=== PATIENT | female | born 1995 ===

== ENCOUNTER 2017-12-27 09:03 | Emergency (ER) | payer BC ==
[~2017-12-27] VITALS: Ht 160 cm; Wt 70.3 kg
[2017-12-27] MEDS ORDERED: NS(*) 0.9% 1000 ML BAG 1,000 ML IV ONE (09:25)
--- NOTE | 2017-12-27 09:25 | ER Report ---
History and Physical Time Seen By MD: 09:20 Hx. of Stated Complaint: ABD SINCE LAST NIGHT. LOWER RIGHT QUAD, MOVING AROUND TO BACKSIDE HPI/ROS CHIEF COMPLAINT: Abdominal pain HISTORY OF PRESENT ILLNESS: This is a 22 year old female. She is having lower right abdominal pain. Started last night and worsened. Lower right with some pain going to right lower back. Worsens with movement and pressure. Having some nausea. No dysuria or changes in bowels. No fevers or chills. Last period was about 1 month ago. No rashes. No chest pain. No shortness of breath. Allergies: Coded Allergies: No Known Drug Allergies (Unverified , 12/27/17) Home Meds Active Scripts Ondansetron (ZOFRAN ODT) 4 Mg Tab.rapdis, 4 MG PO Q6H Y for NAUSEA/VOMITING, # 20 TAB.YAMILE 0 Refills Prov:TINO VALDEZ MD 12/27/17 Ketorolac Tromethamine (KETOROLAC TROMETHAMINE) 10 Mg Tab, 10 MG PO Q6H Y for PAIN, #12 TAB 0 Refills Prov:TINO VALDEZ MD 12/27/17 Hydrocodone Bit/Acetaminophen (HYDROCODON-ACETAMINOPHEN 5-325) 1 Each Tablet, 1 EACH PO Q4H Y for PAIN, #12 TAB 0 Refills Prov:TINO VALDEZ MD 12/27/17 Tamsulosin Hcl (FLOMAX) 0.4 Mg Cap.er.24h, 0.4 MG PO QDAY, #14 CAP 0 Refills Prov:TINO VALDEZ MD 12/27/17 Reviewed Nurses Notes: Yes Hx Substance Use Disorder: No Hx Alcohol Use: No Constitutional Vital Sign - Last 24 Hours 12/27/17 12/27/17 12/27/17 12/27/17 09:03 09:11 09:12 09:18 Temp 98.8 Pulse ??? 66 77 Resp 14 B/P (MAP) 139/89 (106) Pulse Ox 94 O2 Delivery Room Air 12/27/17 12/27/17 12/27/17 12/27/17 09:33 10:03 10:18 10:27 Pulse 65 62 91 B/P (MAP) 114/91 (99) Pulse Ox 95 95 97 12/27/17 12/27/17 12/27/17 12/27/17 10:30 10:33 10:38 10:53 Pulse 68 73 ??? B/P (MAP) 130/101 (111) Pulse Ox 95 96 12/27/17 12/27/17 12/27/17 12/27/17 11:03 11:23 11:30 11:38 Pulse 72 63 B/P (MAP) 122/82 (95) 118/82 (94) Pulse Ox 90 96 12/27/17 12/27/17 12/27/17 12/27/17 11:53 12:00 12:08 12:23 Pulse 70 70 63 B/P (MAP) 123/79 (94) Pulse Ox 95 97 94 12/27/17 12:29 Pulse 76 B/P (MAP) 115/77 (90) Pulse Ox 96 O2 Delivery Room Air Intake and Output 12/27/17 12/27/17 12/28/17 15:00 23:00 07:00 Intake Total 1000 ml Balance 1000 ml Physical Exam General Appearance: The patient is alert. No acute distress. ENT: moist mucous membranes. Respiratory: Lungs are clear to auscultation. Cardiovascular: Regular rate and rhythm. No murmurs, gallops or rubs. Normal capillary refill. Gastrointestinal: Abdomen is tender to palpation in the right lower abdomen. Soft. Nondistended. Rebound and guarding are present. Hypoactive bowel sounds. No costovertebral angle tenderness with percussion. Neurological: Alert and oriented x3. No focal neurologic deficits Skin: Warm and dry. No rashes. Musculoskeletal: No pain with palpation of the low back. DIFFERENTIAL DIAGNOSIS: After history and physical exam, differential diagnosis was considered for abdominal pain including but not limited to appendicitis, cholecystitis, gastritis and urinary tract infection. Medical Decision Making Data Points Result Diagram: 12/27/17 0945 12/27/17 0945 Laboratory Hematology Test 12/27/17 09:08 12/27/17 09:45 Urine Color Yellow Urine Clarity Cloudy Urine pH 6.0 pH (4.8-9.5) Urine Specific [place] 1.016 Urine Protein 30 mg/dL (NEGATIVE) Urine Glucose (UA) Negative mg/dL (NEGATIVE) Urine Ketones Negative mg/dL (NEGATIVE) Urine Blood Large (NEGATIVE) Urine Nitrite Negative (NEGATIVE) Urine Bilirubin Negative (NEGATIVE) Urine Urobilinogen Negative mg/dL (0.2-1.9) Urine Leukocyte Esterase Large (NEGATIVE) Urine RBC 139 /HPF (0-2/HPF) Urine WBC 54 /HPF (0-5/HPF) Urine Squamous Epithelial Cells Many /LPF (</=FEW) Urine Renal Epithelial Cells Many /LPF (NONE-FEW) Urine Bacteria Many /HPF (NONE-FEW) Urine Mucus Few /HPF (NONE-FEW) Red Blood Count 5.00 M/uL (4.17-5.56) Mean Corpuscular Volume 84.8 fL (80.0-96.0) Mean Corpuscular Hemoglobin 29.4 pg (26.0-33.0) Mean Corpuscular Hemoglobin Concent 34.7 g/dL (32.0-36.0) Red Cell Distribution Width 12.2 % (11.5-14.5) Mean Platelet Volume 8.5 fL (7.2-11.1) Neutrophils (%) (Auto) 52.0 % (39.4-72.5) Lymphocytes (%) (Auto) 37.5 % (17.6-49.6) Monocytes (%) (Auto) 8.2 % (4.1-12.4) Eosinophils (%) (Auto) 1.4 % (0.4-6.7) Basophils (%) (Auto) 0.9 % (0.3-1.4) Nucleated RBC Relative Count (auto) 0.1 /100WBC Neutrophils # (Auto) 3.0 K/uL (2.0-7.4) Lymphocytes # (Auto) 2.2 K/uL (1.3-3.6) Monocytes # (Auto) 0.5 K/uL (0.3-1.0) Eosinophils # (Auto) 0.1 K/uL (0.0-0.5) Basophils # (Auto) 0.1 K/uL (0.0-0.1) Nucleated RBC Absolute Count (auto) 0.01 K/uL Sodium Level 138 mmol/L (137-145) Potassium Level 4.0 mmol/L (3.5-5.0) Chloride Level 106 mmol/L (98-107) Carbon Dioxide Level 20 mmol/L (22-31) Blood Urea Nitrogen 8 mg/dl (7-18) Creatinine 0.80 mg/dl (0.52-1.04) Glomerular Filtration Rate Calc > 60.0 Random Glucose 88 mg/dl (75-110) Lactate 1.5 mmol/L (0.7-2.1) Calcium Level 9.5 mg/dl (8.4-10.2) Total Bilirubin 0.5 mg/dl (0.2-1.3) Aspartate Amino Transf (AST/SGOT) 21 U/L (0-35) Alanine Aminotransferase (ALT/SGPT) 25 U/L (0-56) Alkaline Phosphatase 51 U/L (0-126) C-Reactive Protein 0.6 mg/dl (<1.0) Total Protein 7.5 gm/dl (6.3-8.2) Albumin 4.2 g/dl (3.5-5.0) Amylase Level 78 U/L (0-110) Lipase 41 U/L (23-300) Human Chorionic Gonadotropin, Qual Negative (NEGATIVE) Chemistry Test 12/27/17 09:08 12/27/17 09:45 Urine Color Yellow Urine Clarity Cloudy Urine pH 6.0 pH (4.8-9.5) Urine Specific [place] 1.016 Urine Protein 30 mg/dL (NEGATIVE) Urine Glucose (UA) Negative mg/dL (NEGATIVE) Urine Ketones Negative mg/dL (NEGATIVE) Urine Blood Large (NEGATIVE) Urine Nitrite Negative (NEGATIVE) Urine Bilirubin Negative (NEGATIVE) Urine Urobilinogen Negative mg/dL (0.2-1.9) Urine Leukocyte Esterase Large (NEGATIVE) Urine RBC 139 /HPF (0-2/HPF) Urine WBC 54 /HPF (0-5/HPF) Urine Squamous Epithelial Cells Many /LPF (</=FEW) Urine Renal Epithelial Cells Many /LPF (NONE-FEW) Urine Bacteria Many /HPF (NONE-FEW) Urine Mucus Few /HPF (NONE-FEW) White Blood Count 5.8 k/uL (4.5-11.0) Red Blood Count 5.00 M/uL (4.17-5.56) Hemoglobin 14.7 g/dL (12.0-16.0) Hematocrit 42.4 % (34.0-47.0) Mean Corpuscular Volume 84.8 fL (80.0-96.0) Mean Corpuscular Hemoglobin 29.4 pg (26.0-33.0) Mean Corpuscular Hemoglobin Concent 34.7 g/dL (32.0-36.0) Red Cell Distribution Width 12.2 % (11.5-14.5) Platelet Count 250 K/uL (150-450) Mean Platelet Volume 8.5 fL (7.2-11.1) Neutrophils (%) (Auto) 52.0 % (39.4-72.5) Lymphocytes (%) (Auto) 37.5 % (17.6-49.6) Monocytes (%) (Auto) 8.2 % (4.1-12.4) Eosinophils (%) (Auto) 1.4 % (0.4-6.7) Basophils (%) (Auto) 0.9 % (0.3-1.4) Nucleated RBC Relative Count (auto) 0.1 /100WBC Neutrophils # (Auto) 3.0 K/uL (2.0-7.4) Lymphocytes # (Auto) 2.2 K/uL (1.3-3.6) Monocytes # (Auto) 0.5 K/uL (0.3-1.0) Eosinophils # (Auto) 0.1 K/uL (0.0-0.5) Basophils # (Auto) 0.1 K/uL (0.0-0.1) Nucleated RBC Absolute Count (auto) 0.01 K/uL Glomerular Filtration Rate Calc > 60.0 Lactate 1.5 mmol/L (0.7-2.1) Calcium Level 9.5 mg/dl (8.4-10.2) Total Bilirubin 0.5 mg/dl (0.2-1.3) Aspartate Amino Transf (AST/SGOT) 21 U/L (0-35) Alanine Aminotransferase (ALT/SGPT) 25 U/L (0-56) Alkaline Phosphatase 51 U/L (0-126) C-Reactive Protein 0.6 mg/dl (<1.0) Total Protein 7.5 gm/dl (6.3-8.2) Albumin 4.2 g/dl (3.5-5.0) Amylase Level 78 U/L (0-110) Lipase 41 U/L (23-300) Human Chorionic Gonadotropin, Qual Negative (NEGATIVE) Urinalysis Test 12/27/17 09:08 Urine Color Yellow Urine Clarity Cloudy Urine pH 6.0 pH (4.8-9.5) Urine Specific [place] 1.016 Urine Protein 30 mg/dL (NEGATIVE) Urine Glucose (UA) Negative mg/dL (NEGATIVE) Urine Ketones Negative mg/dL (NEGATIVE) Urine Blood Large (NEGATIVE) Urine Nitrite Negative (NEGATIVE) Urine Bilirubin Negative (NEGATIVE) Urine Urobilinogen Negative mg/dL (0.2-1.9) Urine Leukocyte Esterase Large (NEGATIVE) Urine RBC 139 /HPF (0-2/HPF) Urine WBC 54 /HPF (0-5/HPF) Urine Squamous Epithelial Cells Many /LPF (</=FEW) Urine Renal Epithelial Cells Many /LPF (NONE-FEW) Urine Bacteria Many /HPF (NONE-FEW) Urine Mucus Few /HPF (NONE-FEW) EKG/Imaging Imaging EXAMINATION: CT abdomen with IV contrast CT pelvis with IV contrast HISTORY: Right lower quadrant pain. TECHNIQUE: Spiral scan was through the abdomen and pelvis during injection of nonionic iodinated intravenous contrast. Sagittal and coronal reformatted images are also submitted. One of the following dose optimization techniques was utilized in the performance of this exam: Automated exposure control; adjustment of the mA and/ or kV according to the patient's size; or use of an iterative reconstruction technique. Specific details can be referenced in the facility's radiology CT exam operational policy. CONTRAST: 75 mL of IV Isovue-370 COMPARISON: None. FINDINGS: Lower chest: Negative. Liver / biliary: Negative. Pancreas: Negative. Spleen: Negative. Adrenal glands: Negative. Kidneys: Multiple bilateral nonobstructing kidney stones measuring up to 6 mm on the left and 3 mm on the right. 3 mm obstructing stone in the right ureteropelvic junction with mild to moderate right hydronephrosis. Pelvic structures: Negative. Bowel: Normal appendix. Otherwise negative. Peritoneum / retroperitoneum / mesenteries: Mild free fluid in the pelvis. No free air. Vessels: Negative. 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 Bilateral L4 pars defects with no listhesis. No aggressive osseous lesions. Lymph node assessment: Negative. IMPRESSION: 1. 3 mm obstructing stone in the right ureteropelvic junction with and mild-to- moderate right hydronephrosis. Multiple additional nonobstructing stones bilaterally. 2. Normal appendix. 3. Mild free fluid in the pelvis, possibly physiologic. 4. 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 Bilateral L4 pars defects with no listhesis. Report Dictated By: Manjeet Zhang MD at 12/27/2017 11:29 AM ED Course/Re-evaluation Clinical Indication for ER IV: IV Access ED Course Labs unremarkable other than urinalysis which showed large blood. The patient has a 3 mm kidney stone at the ureteropelvic junction on CT scan. Discussed this with the patient. She will be discharged home on Lortab, Toradol, Zofran, and Flomax. Decision to Disposition Date: Dec 27, 2017 Decision to Disposition Time: 12:18 Depart Departure Latest Vital Signs Vital Signs Date Time Temp Pulse Resp B/P (MAP) Pulse Ox O2 Delivery O2 Flow Rate FiO2 12/27/17 12:29 76 115/77 (90) 96 Room Air 12/27/17 09:11 98.8 14 Impression: Primary Impression: Nephrolithiasis Additional Impression: Renal colic on right side Condition: Improved Disposition: HOME OR SELF-CARE New Scripts Ondansetron (ZOFRAN ODT) 4 Mg Tab.rapdis 4 MG PO Q6H Y for NAUSEA/VOMITING, #20 TAB.YAMILE 0 Refills Prov: TINO VALDEZ MD 12/27/17 Ketorolac Tromethamine (KETOROLAC TROMETHAMINE) 10 Mg Tab 10 MG PO Q6H Y for PAIN, #12 TAB 0 Refills Prov: TINO VALDEZ MD 12/27/17 Hydrocodone Bit/Acetaminophen (HYDROCODON-ACETAMINOPHEN 5-325) 1 Each Tablet 1 EACH PO Q4H Y for PAIN, #12 TAB 0 Refills Prov: TINO VALDEZ MD 12/27/17 Tamsulosin Hcl (FLOMAX) 0.4 Mg Cap.er.24h 0.4 MG PO QDAY, #14 CAP 0 Refills Prov: TINO VALDEZ MD 12/27/17 Patient Instructions: Kidney Stones (ED) Additional Instructions: Rest and increase fluid intake. For pain you can use: Toradol 10mg, one every 6 hours as needed for pain. Lortab 5/325, take 1-2 every 4 hours as needed for pain. For Nausea: Zofran 4mg, one every 4-6 hours as needed for nausea. To help the stone to pass and to help decrease swelling and pain in the urinary system after the stone passes, we recommend using Flomax 0.4mg one daily for the next couple of weeks. Problem Qualifiers TINO VALDEZ MD Dec 27, 2017 09:25
[2017-12-27] MEDS ORDERED: IOPAMIDOL 76% 75 ML INFUS BTL 75 ML ONE (09:51)
[2017-12-27] MEDS ORDERED: NS 0.9% 20 ML SDV 40 ML ONE (09:51)
[2017-12-27] MEDS ORDERED: NS(*) 0.9% 10 ML VIAL 10 ML ONE (09:51)
[2017-12-27 10:04] LABS: PLATELET COUNT, AUTOMATED 250 K/uL (150-450)
--- NOTE | 2017-12-27 11:42 | RADIOLOGY IMAGING REPORT ---
[place] [facility] [place] Beatriz Bacon : 1995 MR: [id number] V: [id number] EXAM DATE: ORDERING PHYSICIAN: TINO VALDEZ TECHNOLOGIST: Location: [facility] Patient: Beatriz Bacon : 1995 Visit/Account:[id number] Date of Sevice: 12/27/2017 EXAMINATION: CT abdomen with IV contrast CT pelvis with IV contrast HISTORY: Right lower quadrant pain. TECHNIQUE: Spiral scan was through the abdomen and pelvis during injection of nonionic iodinated in travenous contrast. Sagittal and coronal reformatted images are also submitted. One of the following dose optimization techniques was utilized in the performance of this exam: Autom ated exposure control; adjustment of the mA and/or kV according to the patient's size; or use of an i terative reconstruction technique. Specific details can be referenced in the facility's radiology C T exam operational policy. CONTRAST: 75 mL of IV Isovue-370 COMPARISON: None. FINDINGS: Lower chest: Negative. Liver / biliary: Negative. Pancreas: Negative. Spleen: Negative. Adrenal glands: Negative. Kidneys: Multiple bilateral nonobstructing kidney stones measuring up to 6 mm on the left and 3 mm on the right. 3 mm obstructing stone in the right ureteropelvic junction with mild to moderate right h ydronephrosis. Pelvic structures: Negative. Bowel: Normal appendix. Otherwise negative. Peritoneum / retroperitoneum / mesenteries: Mild free fluid in the pelvis. No free air. Vessels: Negative. 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 Bilatera l L4 pars defects with no listhesis. No aggressive osseous lesions. Lymph node assessment: Negative. IMPRESSION: 1. 3 mm obstructing stone in the right ureteropelvic junction with and [id number] right hydron ephrosis. Multiple additional nonobstructing stones bilaterally. 2. Normal appendix. 3. Mild free fluid in the pelvis, possibly physiologic. 4. 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 Bilateral L4 pars defects with no listhesis. Report Dictated By: Manjeet Zhang MD at 12/27/2017 11:29 AM Report E-Signed By: Manjeet Zhang MD at 12/27/2017 11:38 AM WSN:[id number]
[2017-12-27] MEDS ORDERED: ONDA4TAB PO (12:21)
[2017-12-27] MEDS ORDERED: KET10 PO (12:21)
[2017-12-27] MEDS ORDERED: TAMS0.4C25 PO (12:21)
[2017-12-27] MEDS ORDERED: LOR5/325 PO (12:21)
[2017-12-27 12:29] VITALS: BP 115/77
== END 2017-12-27 12:33 | disposition home or self-care (01) ==
LOC: ER 09:03
DX: N20.0 Calculus of kidney (principal)
CPT/HCPCS: 74177; 81001; 82150; 83605; 83690; 84703; 85025; 86140; 96360; 96361; 99284; J7030; J7050; Q9967; 82040; 82247; 82310; 82374; 82435; 82565; 82947; 84075; 84132; 84155; 84295; 84450; 84460; 84520